=== PATIENT | male | born 1955 | race Caucasian/White ===

== ENCOUNTER 2016-10-08 19:54 | Emergency (ER) ==
[2016-10-08] MEDS ORDERED: DILAUDID 2 MG/ML SYRINGE IM STA (20:02)
[2016-10-08] MEDS ORDERED: TORADOL IM STA (20:02)
[2016-10-08] MEDS ORDERED: NORFLEX IM STA (20:02)
[2016-10-08 20:03] VITALS: BP 169/92; TEMP 98.7; BMI 25.1
--- NOTE | 2016-10-08 20:06 | ED.PDOC ---
General ED Provider: Dr. AUTUMN CHANEL-ER Chief Complaint: Back Pain Stated Complaint: i was feeding the chickens and i twisted and hurt my back--i didnt fall Time Seen by Physician: 20:04 Mode of Arrival: Walk-In Information Source: Patient, Family Exam Limitations: No limitations Primary Care Provider: AUTUMN CHANEL Nursing and Triage Documentation Reviewed and Agree: Yes Musculoskeletal Complaint Exam - Back Pain Complaint/Exam Mechanism of Injury: Reports: No known trauma Onset/Duration: several hours Symptoms Are: Still present Timing: Constant Initial Severity: Mild Current Severity: Moderate Location: Reports: Discrete (lumbar spine) Character: Reports: Dull, Aching, Throbbing Aggravating: Reports: Movements, Lifting, Bending, Walking Alleviating: Reports: None Associated Signs and Symptoms: Denies: Swelling, Redness, Bruising, Fever, Weakness, Numbness, Tingling, Abdominal pain, Flank pain, Bladder incontinence, Bowel incontinence, Weight loss, Pain with weight bearing Related History: Reports: Previous back injury TAD Risk Factors: Reports: None AAA Risk Factors: Reports: None Cauda Equina Risk Factors: Reports: None Epidural Abcess Risk Factors: Reports: None Related Surgical History: Reports: None Focal Tenderness: Yes Paraspinal Muscle Tenderness: Yes Paraspinal Muscle Spasm: Yes Scoliosis: No Lordosis: No Kyphosis: No SLR Test: Right Negative, Left Negative Hip Motion Testing Pain: Right Negative, Left Negative Focal Weakness: Present: None Focal Sensory Loss: Present: None Gait: Present: Abnormal Differential Diagnoses: Sprain, Other Review of Systems - Review Of Systems Constitutional: Reports: No symptoms Eyes: Reports: No symptoms Ears, Nose, Mouth, Throat: Reports: No symptoms Respiratory: Reports: No symptoms Cardiac: Reports: No symptoms GI: Reports: No symptoms : Reports: No symptoms Musculoskeletal: Reports: Back pain Skin: Reports: No symptoms Neurological: Reports: No symptoms Endocrine: Reports: No symptoms Hematologic/Lymphatic: Reports: No symptoms All Other Systems: Reviewed and Negative Past Medical History - Past Medical History Endocrine: Reports: None Cardiovascular: Reports: None Respiratory: Reports: None Hematological: Reports: None Gastrointestinal: Reports: None Genitourinary: Reports: None Neuro/Psych: Reports: None Musculoskeletal: Reports: Arthritis, Joint Pain Cancer: Reports: None - Surgical History General Surgical History: Reports: None - Family History Family History: Reports: None - Social History Smoking Status: Former smoker Hx Substance Use: No Alcohol Screening: None Lives: With family Physical Exam - Physical Exam Appearance: Well-appearing, No pain distress, Well-nourished Eyes: TEDDY, EOMI, Conjunctiva clear ENT: Ears normal, Nose normal, Oropharynx normal Neck: Supple Respiratory: Airway patent Cardiovascular: RRR, Pulses normal, No rub, No murmur GI/: Soft, Nontender, No masses, Bowel sounds normal, No Organomegaly Musculoskeletal: Limited ROM Skin: Warm, Dry, Normal color Neurological: Sensation intact, Motor intact, Reflexes intact, Cranial nerves intact, Alert, Oriented Psychiatric: Affect appropriate, Mood appropriate Interpretation - Radiology Interpretation Radiology Interpretation By: ED Physician Radiology Results: Negative Exam Interpreted: Portable CXR Re-Evaluation - Re-Evaluation Time of Re-Evaluation: 20:15 Status: Improved Vital Signs Stable: Yes Pain Level: 2 Appearance: NAD Lungs: Clear Skin: Warm and Dry Neuro: Alert and Oriented X3 CV: RRR Critical Care Note - Critical Care Note Total Time (mins): 0 Course - Course Hematology/Chemistry: 10/08/16 20:30 10/08/16 20:30 Orders, Labs, Meds: Lab Review 10/08/16 20:30 WBC 7.87 RBC 4.54 L Hgb 13.5 L Hct 39.8 L MCV 87.7 MCH 29.7 MCHC 33.9 RDW Coeff of Panchito 11.9 Plt Count 232 Immature Gran % (Auto) 0.1 Neut % (Auto) 46.5 Lymph % (Auto) 38.2 [place] % (Auto) 11.1 H Eos % (Auto) 3.6 Baso % (Auto) 0.5 Immature Gran # (Auto) 0.0 Neut # 3.7 Lymph # 3.0 [place] # 0.9 Eos # 0.3 Baso # 0.0 D-Dimer 0.55 Sodium 138 Potassium 3.8 Chloride 101 Carbon Dioxide 27 Anion Gap 13.8 BUN 13 Creatinine 1.00 Estimated GFR (MDRD) 76.00 BUN/Creatinine Ratio 13.00 Glucose 92 Calcium 9.2 Total Bilirubin 0.97 AST 53 H ALT 39 Alkaline Phosphatase 101 Total Creatine Kinase 98 Troponin I 0.0190 Total Protein 7.0 Albumin 3.8 Globulin 3.2 Albumin/Globulin Ratio 1.19 Amylase 77 Lipase 48 Orders Category Date Time Status EKG-(ED ONLY) Stat CARDIO 10/08/16 20:20 Completed Director Of Digital Marketing [ED FILM SORTER APPLIED] .ONCE EMERGENCY 10/08/16 20:21 Active IV [ED IV/MEDIPORT/POWERPORT] .ONCE EMERGENCY 10/08/16 20:21 Active AMYLASE Stat LAB 10/08/16 20:30 Completed CBC W/ AUTO DIFF Stat LAB 10/08/16 20:30 Completed COMPREHENSIVE METABOLIC PANEL Stat LAB 10/08/16 20:30 Completed CREATINE KINASE Stat LAB 10/08/16 20:30 Completed D-DIMER Stat LAB 10/08/16 20:30 Completed LIPASE Stat LAB 10/08/16 20:30 Completed TROPONIN I Stat LAB 10/08/16 20:30 Completed 0.9 % Sodium Chloride [Saline Flush] MEDS 10/08/16 20:21 Ordered 1 syr IVF PRN PRN Hydromorphone HCl/Pf [Dilaudid 2 mg/ml Syringe] MEDS 10/08/16 20:02 Discontinued 2 mg IM ONCE STA Ketorolac Tromethamine [Toradol] MEDS 10/08/16 20:02 Discontinued 60 mg IM ONCE STA Orphenadrine Citrate [Norflex] MEDS 10/08/16 20:02 Discontinued 60 mg IM ONCE STA Sodium Chloride 0.9% [Sodium Chloride] 1,000 ml MEDS 10/08/16 20:21 Active IV 100 mls/hr CXR [CHEST, 1V AP ONLY] Stat RADS 10/08/16 20:20 Taken Medications Generic Name Dose Route Start Last Admin Trade Name Freq PRN Reason Stop Dose Admin Sodium Chloride 1,000 mls @ 100 mls/hr 10/08/16 20:21 10/08/16 20:32 Sodium Chloride IV 10/09/16 06:20 100 mls/hr .Q10H STA Administration Sodium Chloride 1 syr 10/08/16 20:21 Saline Flush IVF PRN PRN To flush IV Discontinued Medications Generic Name Dose Route Start Last Admin Trade Name Freq PRN Reason Stop Dose Admin Hydromorphone HCl 2 mg 10/08/16 20:02 10/08/16 20:15 Dilaudid 2 Mg/Ml Syringe IM 10/08/16 20:03 2 mg ONCE STA Administration Ketorolac Tromethamine 60 mg 10/08/16 20:02 01/20/17 20:16 Toradol IM 10/08/16 20:03 60 mg ONCE STA Administration Orphenadrine Citrate 60 mg 10/08/16 20:02 10/08/16 20:16 Norflex IM 10/08/16 20:03 60 mg ONCE STA Administration approx 5min after dilaudid he experinced 1min of diaphrosis, nausea and chest pain that quickly resolved--ekg and cardiac enzymes neg--he is now chest pain free Vital Signs: Temp Pulse Resp BP Pulse Ox 10/08/16 19:55 98.7 F 88 16 169/92 H 97 Departure - Departure Time of Disposition: 20:06 Disposition: HOME SELF-CARE Discharge Problem: Lumbar strain Qualifiers: Encounter type: initial encounter Qualifier Code: (S39.012A) Strain of muscle, fascia and tendon of lower back, initial encounter Instructions: Low Back Strain (ED) Condition: Good Pt referred to PMD for follow-up: Yes Additional Instructions: flexeril 10mg tid --heat alt ice--f/u with me prn--can use tylenol, norco or motrin along with the flexeril for pain relief Allergies/Adverse Reactions: Allergies codeine Adverse Reaction (Verified 10/08/16 19:58) Home Medications: Ambulatory Orders 1 [No Reported Medications] 09/09/16 Disposition Discussed With: Patient, Family
[2016-10-08] MEDS ORDERED: SODIUM CHLORIDE 1,000 ML IV STA (20:21)
[2016-10-08 20:38] LABS: BASOPHILS % (AUTO) 0.5 % (0.0-3.0); EOSINOPHILS # (AUTO) 0.3 K/ul (0.0-0.7); EOSINOPHILS % (AUTO) 3.6 % (0.0-7.0); HEMATOCRIT 39.8 % (42.0-52.0); HEMOGLOBIN 13.5 g/dl (14.0-18.0); IMMATURE GRANULOCYTE % (AUTO) 0.1 % (0.0-5.0); LYMPHOCYTES % (AUTO) 38.2 (10.0-50.0); MEAN CORPUSCULAR HEMOGLOBIN 29.7 pg (27.0-31.0); MEAN CORPUSCULAR HGB CONC 33.9 (31.8-35.4); MEAN CORPUSCULAR VOLUME 87.7 fl (80.0-94.0); MONOCYTES # (AUTO) 0.9 K/uL (0.4-2.0); MONOCYTES % (AUTO) 11.1 (0-10); NEUTROPHILS # (AUTO) 3.7 K/ul (2.0-6.9); NEUTROPHILS % (AUTO) 46.5; PLATELET COUNT 232 10^3/uL (140-440); RED BLOOD COUNT 4.54 10^6/ul (4.70-6.10); WHITE BLOOD COUNT 7.87 K/ul (4.2-10.2)
[2016-10-08 21:11] LABS: ALBUMIN 3.8 g/dL (3.4-5.0); ALBUMIN/GLOBULIN RATIO 1.19; ANION GAP 13.8; BILIRUBIN,TOTAL 0.97 mg/dL (0.00-1.20); CALCIUM 9.2 mg/dL (8.2-10.2); POTASSIUM 3.8 mmol/L (3.5-5.1); TROPONIN I 0.019 ng/ml (0.0000-0.4000)
--- NOTE | 2016-10-09 08:17 | DI ---
EXAM: One-view chest HISTORY: Pain TECHNIQUE: Single frontal view of the chest was obtained. Comparison 11/27/2012. FINDINGS: The heart is normal size. Lungs are clear. The pulmonary vasculature appears normal. T he osseous structures are normal. IMPRESSION: No active cardiopulmonary disease.
== END 2016-10-08 21:30 | disposition home or self-care (01) ==
LOC: ED 19:54
DX: S39.012A Strain of muscle, fascia and tendon of lower back, initial encounter (principal)
CPT/HCPCS: 36415; 80053; 82150; 82550; 83690; 84484; 85025; 85379; 93005; 93010; 96360; 96361; 96372; 99284

== ENCOUNTER 2017-01-05 00:01 | Outpatient (POV) | END 2017-01-05 00:02 | LOC: OUTPT 00:01 | PROVIDERS: ATTEND Otolaryngology | DX: H69.90 Unspecified Eustachian tube disorder, unspecified ear (principal) | CPT/HCPCS: 92557; 92567 ==

== ENCOUNTER 2018-01-04 11:09 | Emergency (ER) ==
[2018-01-04 11:24] VITALS: BP 169/103; TEMP 98.4; BMI 24.4
[2018-01-04] MEDS ORDERED: LIDOCAINE HCL 1% SDV SUBCUT STA (11:38)
[2018-01-04] MEDS ORDERED: LIDOCAINE HCL 1% SDV ONE (11:39)
--- NOTE | 2018-01-04 11:49 | ED.PDOC ---
General ED Provider: Dr. JUANITA MARCUM Chief Complaint: Finger Pain/Injury Stated Complaint: FISH HOOK LEFT MIDDLE FINGER Time Seen by Physician: 11:10 Mode of Arrival: Walk-In Information Source: Patient Exam Limitations: No limitations Primary Care Provider: AUTUMN CHANEL Referred to ED by: Other (FISH HOOK LEFT MIDDLE FINGER TETNUS IS REPORTED BY PT TO BE UTD ) Nursing and Triage Documentation Reviewed and Agree: Yes Reviewed sepsis parameters & appropriate labs ordered?: Yes System Inflammatory Response Syndrome: Not Applicable Sepsis Protocol: For patient's 13 years and over: Temp is 96.8 and below OR 101 and greater Pulse >90 BPM Resp >20/minute Acutely Altered Mental Status Are patient's symptoms suggestive of a new infection, such as: -Pneumonia -Skin, Soft Tissue -Endocarditis -UTI -Bone, Joint Infection -Implantable Device -Acute Abdominal Infection -Wound Infection -Meningitis -Blood Stream Catheter Infection -Unknown System Inflammatory Response Syndrome: Not Applicable Musculoskeletal Complaint Exam - Hand/Wrist Complaint/Exam Location of Pain: Reports: Digit #3 Mechanism of Injury: Reports: No known trauma (FISH HOOK ) Onset/Duration: 1 HR Symptoms Are: Still present Onset of Pain: Reports: Immediate Initial Severity: Mild Current Severity: Mild Location: Reports: Discrete Character: Reports: Aching Alleviating: Reports: Rest Aggravating: Reports: Movement Associated Signs and Symptoms: Denies: Swelling, Redness, Bruising, Fever, Weakness, Numbness, Tingling (SEE PHOTOS) Review of Systems - Review Of Systems Constitutional: Reports: No symptoms Eyes: Reports: No symptoms Ears, Nose, Mouth, Throat: Reports: No symptoms Respiratory: Reports: No symptoms Cardiac: Reports: No symptoms GI: Reports: No symptoms : Reports: No symptoms Musculoskeletal: Reports: No symptoms Skin: Reports: No symptoms Neurological: Reports: No symptoms Endocrine: Reports: No symptoms Hematologic/Lymphatic: Reports: No symptoms All Other Systems: Reviewed and Negative Past Medical History - Past Medical History Previously Healthy: Yes Endocrine: Reports: None Cardiovascular: Reports: None Respiratory: Reports: None Hematological: Reports: None Gastrointestinal: Reports: None Genitourinary: Reports: None Neuro/Psych: Reports: None Musculoskeletal: Reports: Arthritis, Joint Pain Cancer: Reports: None - Surgical History General Surgical History: Reports: None - Family History Family History: Reports: None - Social History Smoking Status: Former smoker Hx Substance Use: No Alcohol Screening: None - Immunizations Tetanus Shot up to Date: Yes (less then 5 years) Physical Exam - Physical Exam Appearance: Well-appearing, No pain distress, Well-nourished Eyes: TEDDY, EOMI, Conjunctiva clear ENT: Ears normal, Nose normal, Oropharynx normal Respiratory: Airway patent, Breath sounds clear, Breath sounds equal, Respirations nonlabored Cardiovascular: RRR, Pulses normal, No rub, No murmur GI/: Soft, Nontender, No masses, Bowel sounds normal, No Organomegaly Musculoskeletal: Normal strength (FISH HOOK LEFT MIDDLE FINGER ) Skin: Warm, Dry, Normal color Neurological: Sensation intact, Motor intact, Reflexes intact, Cranial nerves intact, Alert, Oriented Psychiatric: Affect appropriate, Mood appropriate Procedures - Foreign Body Removal Location of Foreign Object: LEFT MIDDLE FINGER Foreign Object: FISH HOOK Depth of Object: 2 MM Type of Anesthesia: Local Medication Used: Yes: Lidocaine (PLAIN0.5 ML) Prep: Saline, Betadine Irrigation: No Skin Incised: No Instruments Used: Yes: Forceps Foreign Body Identified and Removed: Yes Critical Care Note - Critical Care Note Total Time (mins): 0 Course - Course Orders, Labs, Meds: Orders Category Date Time Status Lidocaine HCl/Pf [Lidocaine HCl 1% Sdv] MEDS 01/04/18 11:39 Discontinued 5 ml .ROUTE .STK-MED ONE Lidocaine HCl/Pf [Lidocaine HCl 1% Sdv] MEDS 01/04/18 11:38 Stat 5 ml SUBCUT ONCE STA Medications Discontinued Medications Generic Name Dose Route Start Last Admin Trade Name Freq PRN Reason Stop Dose Admin Lidocaine HCl 5 ml 01/04/18 11:38 Lidocaine Hcl 1% Sdv SUBCUT 01/04/18 11:39 ONCE STA Vital Signs: Temp Pulse Resp BP Pulse Ox 01/04/18 11:10 98.4 F 83 20 169/103 H 97 Departure - Departure Time of Disposition: 11:50 Disposition: HOME SELF-CARE Discharge Problem: Injury of finger, Pain in finger Fish hook injury of hand Qualifiers: Encounter type: initial encounter Laterality: left Qualified Code(s): S69.92XA - Unspecified injury of left wrist, hand and finger(s), initial encounter Instructions: Puncture Wound (DC), Puncture Wound (ED), Soft Tissue Foreign Body (ED) Condition: Good Pt referred to PMD for follow-up: Yes IPMP verified?: No Additional Instructions: Please call your Family Physician as soon as possible to schedule a follow-up appointment. Prescriptions: Amoxicillin 500 mg PO Q8HR #14 tablet Allergies/Adverse Reactions: Allergies codeine Adverse Reaction (Verified 01/04/18 11:18) Home Medications: Ambulatory Orders Nifedipine [Nifedical Xl] 30 mg PO DAILY 01/05/17 Amoxicillin 500 mg PO Q8HR #14 tablet 01/04/18
== END 2018-01-04 11:55 | disposition home or self-care (01) ==
LOC: ED 11:09
DX: S61.243A Puncture wound with foreign body of left middle finger without damage to nail, initial encounter (principal); W45.8XXA Other foreign body or object entering through skin, initial encounter
CPT/HCPCS: 99283